=== PATIENT | male | born 1970 | race Caucasian/White ===

== ENCOUNTER 2018-06-11 09:05 | Emergency (ER) | payer SELFPAY ==
[2018-06-11] MEDS ORDERED: CloNIDine HCL 0.1 MG TABLET PO ONE (09:32)
[2018-06-11 09:36] VITALS: BP 227/128
--- NOTE | 2018-06-11 09:38 | ED Physician Documentation ---
Ear Complaints - HISTORIAN Historian: patient - HPI Stated Complaint: Ears feel full, can't hear. 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 pt presents to the ED via POV c/o "ears feel full". pt reports he cannot afford to go to a primary care provider or get his BP medicine filled. he reports OTC ear wax softening drops are ineffective for him. denies other symptoms or complaints. pt denies current chest pain, dyspnea, syncope/near syncope, headache, dizziness, visual disturbances, n/v/d, fever/chills, rash, sick contacts, dysuria, trauma. melena or hematochezia, bleeding or easy bruising, change in bowel or bladder function. anxiety or depression. ROS Negative unless otherwise specified. - ROS CONST: no problems - PAST HX Past History: other (HTN) Allergies/Adverse Reactions: Allergies Allergy/AdvReac Type Severity Reaction Status Date / Time Penicillins Allergy Verified 05/28/15 20:59 amoxicillin [Amoxicillin] AdvReac Nausea/Vomi Verified 05/28/15 20:59 ting Home Medications: Ambulatory Orders Medication Instructions Recorded Azithromycin [Zithromax] 250 mg PO DAILY 4 Days tablet 05/28/15 - SOCIAL HX Smoking History: greater than 1 pack/day Alcohol Use: none Drug Use: none - FAMILY HX Family History: Yes (CVD) - VITAL SIGNS Vital Signs: Vital Signs Temp Pulse Resp BP Pulse Ox 97.8 F 81 20 227/128 94 06/11/18 09:29 06/11/18 09:29 06/11/18 09:29 06/11/18 09:29 06/11/18 09:29 - REVIEWED ASSESSMENTS Nursing Assessment Reviewed: Yes Vitals Reviewed: Yes ED Results Lab/Radiology - Orders Orders: ED Orders Category Date Time Status Irrigate Ear 1T Care 06/11/18 09:30 Ordered CloNIDine HCL [Catapress] Med 06/11/18 09:32 Once 0.1 mg PO NOW ONE Ear Complaint Physical Exam - EXAM General Appearance: no acute distress, alert Ear: auricle nml, 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 No: pain w movement of auricl Mouth/Throat: lips nml, gums nml, pharynx nml Nose: nml inspection Head/Neck: atraumatic, neck nml inspection Eye: eyes nml inspection, PERRL Resp/CVS: No: wheezes, rales, rhonchi Abdomen: non-tender, no organomegaly Skin: nml color, no skin rash Neuro/Psych: oriented x3, mood/affect nml Discharge Clincal Impression: Hypertension Qualifiers: Hypertension type: unspecified Qualified Code(s): I10 - Essential (primary) hypertension Impacted cerumen Qualifiers: Laterality: bilateral Qualified Code(s): H61.23 - Impacted cerumen, bilateral Referrals: Azeb Aj FNP [NURSE PRACTITIONER] - 2 Days Additional Instructions: Losartan 50 mg once daily for high blood pressure. this is 4$ at [facility]. Your blood pressure is dangerously high. you could have a stroke or [place] and or end up in a prison. take your blood pressure twice a day and log it to take for your primary care. Stop smoking seek medical care immediately if difficult to wake, difficulty breathing, feeling faint or fainting, increased rash, chest pain, shortness of breath, or fever not controlled by tylenol/motrin or any concern. use 1/3 hydrogen peroxide, 1/3 distilled white vinegar. 1/3 water. allow to soak in ear for 10-20 min. then rinse. Follow up with primary care in 1 week. use the list to call and find an affordable option. -UNDERSTAND THAT THIS IS AN EMERGENCY EVALUATION FOR YOUR COMPLAINT TODAY AND BY NATURE IS LIMITED AND NOT A SUBSTITUTE FOR ONGOING MEDICAL CARE AND THAT EVEN THOUGH TEST RESULTS AND TREATMENT PLAN WERE EXPLAINED THERE MAY BE A NEED FOR ADDITIONAL TESTING TO FULLY DETERMINE THE EXTENT OF YOUR ILLNESS/INJURY/OR CONCERN SO YOU SHOULD CONTACT AND OR ESTABLISH WITH A PRIMARY CARE PROVIDER (OR REFERRAL DOCTOR IF APPLICABLE) FOR AN APPOINTMENT SOON POSSIBLE. Condition: Good Disposition: AGAINST MEDICAL ADVICE Decision to Admit: NO Date of Decison to Admit: 06/11/18 Decision Time: 11:20
== END 2018-06-11 11:57 | disposition left against medical advice (07) ==
LOC: ED 09:05
DX: H61.23 Impacted cerumen, bilateral (principal); I10 Essential (primary) hypertension; Z72.0 Tobacco use
CPT/HCPCS: 69210; 99283